=== PATIENT | female | born 1965 | race Caucasian/White ===

== ENCOUNTER 2016-11-06 16:58 | Emergency (ER) | payer OTHER ==
[~2016-11-06] VITALS: Ht 167.6 cm; Wt 63.5 kg
[2016-11-06 17:01] VITALS: BP 165/100
--- NOTE | 2016-11-06 17:34 | ED UPPER/LOWER EXTREMITY COMPL ---
History of Present Illness General Chief Complaint: Laceration Procedure Stated Complaint: LAC TO LEFT FORE ARM Source: patient, old records Exam Limitations: no limitations Vital Signs & Intake/Output Vital Signs & Intake/Output Vital Signs Date Time Temp Pulse Resp B/P Pulse O2 O2 Flow FiO2 Ox Delivery Rate 11/06 1701 97.8 71 20 165/100 96 Room Air Allergies Coded Allergies: No Known Allergies (11/06/16) Triage Note: TRIAGE: PT TO ER C/C LAC TO BACK OF L FOREARM S/P OPENING BOX WITH KNIFE, STATES SHE ACCIDENTALLY CUT HERSELF WITH THE KNIFE. HAS APPROX 2 CM LAC TO ARM. NO LONGER BLEEDING. GAUZE DRESSING APPLIED AT TRIAGE. Triage Nurses Notes Reviewed? yes HPI: 51-year-old female presents to emergency room status post sustaining laceration to her left forearm just prior to arrival when she accidentally cut it with a knife attempting to open a package. Her last tetanus is unknown. She denies any numbness or tingling to her hands no difficulty with range of motion of her wrist or hand. She is complaining of mild aching pain at the site of the laceration. There is no other injury she is right-hand dominant. There are no modifying factors or associated symptoms otherwise. Past History Travel History Traveled to [place] past 21 day No Medical History Any Pertinent Medical History? none Neurological: NONE EENT: NONE Cardiovascular: NONE Respiratory: NONE Gastrointestinal: NONE Hepatic: NONE Renal: NONE Musculoskeletal: NONE Psychiatric: NONE Endocrine: NONE Blood Disorders: NONE Cancer(s): NONE [place] NET/Reproductive: NONE Surgical History Surgical History: none Psychosocial History What is your primary language Mauritian Tobacco Use: Never used ETOH Use: denies use Illicit Drug Use: denies illicit drug use Family History Hx Contributory? No Review of Systems Review of Systems Constitutional: Reports: see HPI. All Other Systems: Reviewed and Negative Comments Review of systems: See HPI, All other systems negative. Constitutional, no chills no fever, no malaise HEENT: no sore throat no congestion Cardiovascular: No chest pain , no palpitation Skin, no rashes, no change in ski Respiratory: No dyspnea no cough no sputum GI: No nausea no vomiting, no diarrhea, : No dysuria Muscle skeletal: No joint pain, no back pain, no neck pain, Neurologic: No numbness no headache Psych: No stress Heme/endocrine: No bruising no bleeding Immunology: No lymphadenopathy Physical Exam Physical Exam General Appearance: well developed/nourished, no apparent distress, alert Comments: Well-developed well-nourished patient in no apparent distress. HEENT: Atraumatic, extraocular motion intact Neck: Supple, FROM Back: FRom Cardiovascular: Regular rate and rhythms no murmurs rubs or gallops, Respiratory: No respiratory distress. Patient speaking in full complete sentences. Breath sounds clear to auscultation bilaterally: NO W/R/R Shoulder: Atraumatic/Stable. FROM . Elbow: Atraumatic/stable. FROM. No laxity Upper arm/Forearm:2.5cm superficial linear laceration noted to the medial volar mid left forearm, no active bleeding, no visualized or palpable fb, no deep tendon injury. . Nontender. No edema, 5 out of 5 archeologist strength noted to bilateral upper extremities Hand/Wrist: Atraumatic/stable. Skin intact. FROM Pulses: Normal/equal radial pulses bilaterally. Brisk cap refill lower Extremities: full range of motion Neuro: Alert and oriented x3 Skin: Warm & dry;No appreciable rash on exposed skin Psych: Mood affect normal, normal memory normal judgment. Progress Differential Diagnosis: contusion, sprain, tendon injury, EMBEDDED FB Plan of Care: Current Medications Sig/Jose Start time Last Medication Dose Stop Time Status Admin Lidocaine 20 ML ONCE ONE 11/06 1744 UNVr (Lidocaine 1%) 11/06 1745 Tetanus/Diphtheria 0.5 ML ONCE ONE 11/06 1744 UNVr Toxoids Adsorbed 11/06 1745 (Decavac) After verbal consent was obtained the area was anesthetized with lidocaine 1%. Was irrigated thoroughly with Betadine peroxide sutures3-0 X 5 Were administered by me. Patient tolerated procedure well discussed with her possible foreign body not seen on examination injury& She has full range motion of all of her hands and wrist. Patient clinically appears well she understands plan she'll return in 7 days for suture removal. (RUDOLPH [place]) Departure Departure Time of Disposition: 1745 Disposition: HOME OR SELF CARE Condition: Stable Clinical Impression Primary Impression: Laceration Referrals: LILLIAN HAILE,CONTRERAS Tilley (PCP/Family) Additional Instructions: Keep area clean and covered as discussed, bacitracin daily. Return to ER in 7- 10 days for suture removal. The possibility of a retained foreign body not seen during examination today or deep tendon injury exists. Return to ER anytime sooner with any concerns or signs of infection: Redness, warmth, swelling discharge fever or chills. Departure Forms: Customer Survey General Discharge Information Procedures Laceration/Wound Repair Laceration/Wound Repair: Wound Location: upper extremity Wound's Depth, Shape: linear, superficial Wound Length (cm): 2.5 Wound Explored: clean, no foreign body removed, irrigated extensively Irrigated w/ Saline (ccs): 200 Betadine Prep? Yes Anesthesia: 1% lidocaine Volume Anesthetic (ccs): 5 Wound Debrided: minimal Wound Repaired With: sutures Suture Size/Type: 3:0 Number of Sutures: 5 Layer Closure? No Sterile Dressing Applied: Yes Tetanus Status: up to date ED Attending Observation Initial Observation Note: I have seen and personally examined DARI BLANCO on 11/06/16 at 1746. I agree with the current emergency department documentation. The disposition (admission or discharge) is uncertain at this time, she needs a period of observation for the following reason(s): The ED Nurse caring for this patient has been personally informed as to what the patient is being observed for.
== END 2016-11-06 18:19 ==
LOC: ERH 16:58
DX: S51.812A Laceration without foreign body of left forearm, initial encounter (principal); W26.0XXA Contact with knife, initial encounter
CPT/HCPCS: 90471; 90714